=== PATIENT | female | born 1950 | race American Indian/Alaskan Native ===

== ENCOUNTER 2017-03-15 13:44 | Outpatient (CLI) | payer MEDICARE ==
--- NOTE | 2017-03-15 15:40 | Mammography Report ---
Bilateral digital screening mammogram with CAD. Comparison is made to previous study on June 25, 2015. Findings: The overall clinical pattern is stable with scattered fibronodular tissue. In the upper outer quadrant of the left breast, a tiny nodular asymmetry has decreased considerably in size since the previous study and this needs no additional evaluation. No architectural distortion or suspicious microcalcifications are seen. Impression: No suspicious findings. BI-RADS code: 2. Recommendation: Annual screening.
== END 2017-03-15 13:45 | disposition home or self-care (01) ==
LOC: MAMMO 13:44
PROVIDERS: ATTEND Family Medicine Adult Medicine
DX: Z12.31 Encounter for screening mammogram for malignant neoplasm of breast (principal); E11.9 Type 2 diabetes mellitus without complications; I10 Essential (primary) hypertension
CPT/HCPCS: 77067; G0202